=== PATIENT | female | born 1990 | race Caucasian/White ===

== ENCOUNTER 2018-04-25 08:00 | Inpatient (IN) ==
[2018-04-25] MEDS ORDERED: Oxytocin 20 units/ LR 1000 mL 20 UNIT/1,000 ML BAG IVC SCH ×2 (08:30→17:55)
[2018-04-25] MEDS ORDERED: Naloxone 0.4 MG/ML INJ IVP PRN (08:30)
[2018-04-25] MEDS ORDERED: Ringers Solution, Lactated 1,000 ML IVC SCH (08:30)
[2018-04-25] MEDS ORDERED: Famotidine 20 MG/2 ML VIAL IVP PRN (08:30)
[2018-04-25] MEDS ORDERED: *HR* Nalbuphine 10 MG/ML AMPUL IVP PRN (08:30)
[2018-04-25] MEDS ORDERED: Ondansetron 4 MG/2 ML VIAL IVP PRN (08:30)
[2018-04-25] MEDS ORDERED: Lidocaine 1% 20 ML MDV ID PRN (08:30)
--- NOTE | 2018-04-25 09:00 | OB/GYN History & Physical ---
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 Plan to not use FSE or vacuum. Delay vaccines and procedures until he is tested. History of Present Illness Chief complaint: induction of labor at term HPI: Ms. Day is a 27 year old female G 2 P 1-0-0-1 at 39 2/7 weeks who presents for scheduled induction of labor. She denies any leaking fluid, vaginal bleeding, or painful contractions. She reports good movement. 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 She has been seen by hematology and cleared for epidural with predose of factor XI. Anesthesia had been consulted in the third trimester and is in agreement. 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 Psychiatric history: no psych history - Past Surgical History Surgical History: other Additional surgical history: lumpectomy, T&A - Social History Smoking Status: Never smoker Smokeless Tobacco Status: No Alcohol use: none Drug use: none - Family History Father Living Status: Still Living Hx Family Cardiac Disorders: Yes (HTN) Hx Family Medical Disorders: Yes (Hemophelia) Obstetrical History - Pregnancies : 2 Para: 1 Livin Medications and Allergies Vit/Iron Fumarate/FA [ Tablet] 1 each PO DAILY 06/08/15 [History] Calcium Carbonate [Tums] 1,000 mg PO Q4HR 04/25/18 [History] Docusate [Colace] 100 mg PO DAILY 04/25/18 [History] Ferrous Sulfate 325 mg PO DAILY 04/25/18 [History] Allergy/AdvReac Type Severity Reaction Status Date / Time Sulfa (Sulfonamide Allergy See Verified 04/25/18 08:45 Antibiotics) Comments Review of System OB All systems PM: reviewed and no additional remarkable complaints except as stated - Constitutional Constitutional ROS IM: no chills, no fever(s), no headache(s), no weight loss - Gastrointestinal Gastrointestinal: no constipation, no cramping, no nausea, no vomiting - Genitourinary Genitourinary: amenorrhea, no difficulty conceiving, no difficulty urinating, no difficulty voiding - Menstruation Menstruation: amenorrhea Exam - Constitutional Constitutional: well developed, well nourished, no acute distress, average body habitus - HEENT HEENT: Normocephaly, Mucus Membranes Moist - Lungs Respiratory exam: CTAB - Cardiovascular Cardiovascular exam: RRR - Abdomen Abdomen: Present: bowel sounds normal, gravid, non tender - Cervix Dilation: 2 (exam 04/17/18) Effacement: 80 Station: -1 - Comments Comments: category 1 FHR tracing with baseline 125. Infrequent contractions without change in FHR Results All other labs normal. - VTE Reasons for not Prescribing Prophylaxis: Treatment not Indicated - Low risk for VTE
[2018-04-25] MEDS ORDERED: Epidural Premix (fent/bupiv) 110 ML EP SCH (09:15)
[2018-04-25 09:20] LABS: Hematocrit 29.8 % (35.3-44.9); Hemoglobin 9.8 g/dL (11.5-15.4); Mean Corpuscular HGB Conc 32.9 g/dL (31.6-35.5); Mean Corpuscular Hemoglobin 27.6 pg (28.0-33.3); Mean Corpuscular Volume 83.9 fL (83.0-100.0); Platelet Count 188 K/mcL (140-400); Red Blood Count 3.55 M/mcL (3.82-4.97); Segmented Neutrophils % 70.8 %
[2018-04-25 09:21] LABS: Basophils # 0.1 K/mcL (0.0-0.2); Basophils % 0.5 %; Eosinophils # 0.1 K/mcL (0.0-0.6); Eosinophils % 0.8 %; Immature Granulocytes % 0.7 % (0-4); Lymphocytes % 18.8 %; Monocytes # 0.9 K/mcL (0.0-1.3); Monocytes % 8.4 %; Neutrophils # 7.5 K/mcL (1.6-8.9)
[2018-04-25 09:23] LABS: Amphetamine Screen,Urine Negative ng/mL (Cutoff=1000); Barbiturate Screen,Urine Negative ng/mL (Cutoff=200); Benzodiazepines Screen,Urine Negative ng/mL (Cutoff=200); Cannabinoid Screen,Urine Negative ng/mL (Cutoff = 50); Cocaine Screen,Urine Negative ng/mL (Cutoff= 300); Opiate Screen,Urine Negative ng/mL (Cutoff=300); Phencyclidine Screen,Urine Negative ng/mL (Cutoff=25)
--- NOTE | 2018-04-25 10:11 | Anesthesia Evaluation PreOp ---
Date of Encounter: 04/25/18 Time of Encounter: 10:09 - Past History Planned Operation: SOLEDAD Cardiac History: Denies any Significant Hx Pulmonary History: Denies Any Significant HX STUDENT FINANCIAL AID MANAGER History: Denies Any Significant HX Other Medical History: Bleeding (Factor 9 Def. See hematology note and Dr. Man nguyen for consent for epidural. Okay to proceed with SOLEDAD when pt receives Factor 9 15min prior to epidural placement. Will receive second dose at 24 hour.) Anesthesia History: No Prior Anesthetic Complications, Past Anesthesia Alcohol Use: none Drug use: none Medications and Allergies Vit/Iron Fumarate/FA [ Tablet] 1 each PO DAILY 06/08/15 [History] Calcium Carbonate [Tums] 1,000 mg PO Q4HR 04/25/18 [History] Docusate [Colace] 100 mg PO DAILY 04/25/18 [History] Ferrous Sulfate 325 mg PO DAILY 04/25/18 [History] Allergy/AdvReac Type Severity Reaction Status Date / Time Sulfa (Sulfonamide Allergy See Verified 04/25/18 08:45 Antibiotics) Comments - Meds/Allergy Pre-op Review Medications Reviewed: Yes Allergies Reviewed: Yes Beta Blockers on Current Med List: No Anesthesia Results - Labs 04/25/18 08:50 Anesthesia Exam O2 Sat Height 1.6 m Weight 61.9 kg NPO (# of Hours): 4 Pain Scale: 0 Pain Scale Used: Numeric (1 - 10) - HEENT Pupil (Motor): Pupils equal Mallampati: II Teeth: Normal Oral Opening: Greater than 3 - STUDENT FINANCIAL AID MANAGER LOC: Oriented STUDENT FINANCIAL AID MANAGER Motor: Normal RUE, Normal LUE, Normal RLE, Normal LLE, Normal Face STUDENT FINANCIAL AID MANAGER Sensory: Normal: RUE, LUE, RLE, LLE, Face - Cardiac Rhythm: Regular Murmur: None JVD: No Carotid Bruit: No - Pulmonary Breath Sounds: bilateral Clear Respiratory Effort: Symmetrical Anesthesia Assess/Plan ASA Score: 3 (Factor 9 Def.) Level of consciousness: Cooperative, Oriented Anesthetic Plan: General, Epidural Autologous Blood: Yes Monitoring Plan: Standard Monitors Recovery Plan: PACU
[2018-04-25] MEDS ORDERED: Lidocaine -MPF 1% 5 ML AMPUL ONE (10:13)
[2018-04-25] MEDS ORDERED: FACTOR IX IVPB ONE (12:30)
--- NOTE | 2018-04-25 12:38 | OB Labor Progress Note ---
Date of Encounter: 04/25/18 Time of Encounter: 12:36 Labor Progress Note - Subjective Subjective: Patient states her contractions are a 5/10 pain scale. She would like to get her epidural prior to AROM if possible. - Cervix Cervix: 3/80/-1 cephalic - Heart Tones Heart Tones: 125, category 1, reactive - [place]: q 2 minutes - Interventions Interventions: Continue EFM with anticipation of vaginal delivery. Pitocin increase to obtain adequate contractions.
[2018-04-25] MEDS ORDERED: FACTOR IX IVP ONE (12:45)
--- NOTE | 2018-04-25 14:00 | Anesthesia Procedures ---
Addendum entered and electronically signed by Davis Arreola CRNA 04/25/18 20:18: Delivery Date: 04/25/18 Infant Delivery Time: 16:04 Original Note: Date of Encounter: 04/25/18 Time of Encounter: 13:37 Procedures: Anesthesia - Epidural/Spinal Patient ID/Chart reviewed: Yes Patient examined: Yes OB Eval: Gestational age: TERM OB Eval: : 2 OB Eval: Hx Para: 1 OB Eval: Contractions: Non-stressed pattern Consent Obtained: Yes Supplemental Oxygen: None/Room Air Site Prep: Aseptic Technique, Sterile prep and drape, 0.5% Chlorhexidine/Alcohol Patient position: upright Local Anesthetic: Lidocaine 1% Amount of Local Anesthetic used: 2 Touhy Needle Gauge: 18 Touhy Needle Depth (cm): 7 Catheter Depth at Skin (cm): 11 Test Dose (1.5% Lido + Epi): Volume given (mls): 4 Test Dose Result: Negative Loading Dose: Other: 10ml from solution Loading Dose Administered: Thru Catheter Infusion Med: 0.125% Bupivacaine w/ 2 mcg/ml Fentanyl Infusion Rate (mls/hr): [address]: Tegaderm, Tape Interspace Used: L3-L4 Loss of Resistance (SYLVIA): Yes (saline) Blood: No CSF: No Paresthesia: No Procedure: vss though out procedure, FHR stable per staff, epidural placement with Hematology recommendations= factor given 15 prior to procedure. All staff aware and will follow there recommendations for cont. care.
--- NOTE | 2018-04-25 14:27 | OB Labor Progress Note ---
Date of Encounter: 04/25/18 Time of Encounter: 14:25 Labor Progress Note - Subjective Subjective: Patient resting comfortably with epidural in place. - Cervix Cervix: 3cm/80%/-1 - Heart Tones Heart Tones: Category I FHR baseline 125bpm - Interventions Interventions: AROM of small amount of clear fluid IUPC placed Frequent position change and peanut-ball Anticipate Dr. Montana updated - Plan Physician notified: Yes
--- NOTE | 2018-04-25 17:32 | OB/GYN Procedure Note ---
Delivery - Delivery Date: 04/25/18 Provider: Thania Montana Intrapartum events: none Delivery induction: oxytocin Delivery augmentation: rupture of membranes Delivery monitor: external FHT, external uterine, internal uterine Anesthesia: epidural Quantitated Blood Loss: 100 - (s) Infant A Infant Delivery Date: 04/25/18 Delivery Time: 16:04 Presentation: vertex Position: CRISS Route of delivery: Gender: Male Viability: Viable Pounds: 8 Ounces: 6 Weight Gram: 3.785 kg at 1 minute: 9 at 5 mins: 9 Shoulder Dystocia: not encountered Specimens collected: cord blood Placenta: spontaneous Cord: nuchal cord, 3 umbilical vessels, delivered through nuchal - Repair Laceration Description: None, Perineal - 2nd Degree - Complications Delivery complications: none Delivery comments: Called to room with patient complete and +2 station. Under maternal effort she delivered a viable male weighing 8 lbs. 6 oz. and Apgars 9 and 9 at one and 5 minutes respectively over a second-degree perineal laceration. Following delivery of the head there was a loose nuchal cord noted that she delivered through. There is no shoulder dystocia encountered. Infant was placed on mom's abdomen and the cord was allowed to cease pulsations. The cord was then double clamped and cut with assistance from the father. Placenta delivered spontaneously, complete, and intact with a three-vessel cord. Second-degree perineal laceration was repaired using 3-0 Vicryl in standard fashion. Mother and recovering in the LDR in stable condition. - Disposition Mom disposition: stable in LDR disposition: stable in LDR
[2018-04-25] MEDS ORDERED: Ibuprofen 600 MG TABLET PO PRN (17:55)
[2018-04-25] MEDS ORDERED: Benzocaine/Menthol 56 GM AEROSOL SPRAY TP ONE (21:28)
[2018-04-26] MEDS: Acetaminophen 325 MG TABLET PO PRN ×2 (03:44→11:12)
[2018-04-26 08:43] VITALS: BP 108/71
[2018-04-26] MEDS ORDERED: Prenatal Vit/FA 1 EACH TABLET PO SCH (09:00)
--- NOTE | 2018-04-26 09:15 | Discharge Summary ---
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 Montana in 4-6 weeks. - Discharge Medications Prescriptions: New Acetaminophen [Tylenol] 650 mg PO Q6HR PRN tablet PRN Reason: Mild Pain Breast Pump [BREAST PUMP] 1 each .ROUTE AD #1 each Continue Vit/Iron Fumarate/FA [ Tablet] 1 each PO DAILY Docusate [Colace] 100 mg PO DAILY Ferrous Sulfate 325 mg PO DAILY Discontinued Calcium Carbonate [Tums] 1,000 mg PO Q4HR Home Medications: Vit/Iron Fumarate/FA [ Tablet] 1 each PO DAILY 06/08/15 [History] Docusate [Colace] 100 mg PO DAILY 04/25/18 [History] Ferrous Sulfate 325 mg PO DAILY 04/25/18 [History] Acetaminophen [Tylenol] 650 mg PO Q6HR PRN tablet 04/26/18 [Rx] Breast Pump [BREAST PUMP] 1 each .ROUTE AD #1 each 04/26/18 [Rx] Allergies/Adverse Reactions: 3 Allergy/AdvReac Type Severity Reaction Status Date / Time Sulfa (Sulfonamide Allergy See Verified 04/25/18 08:45 Antibiotics) Comments Data Procedures and tests throughout hospitalization: Laboratory Tests 04/25/18 04/25/18 08:50 08:50 WBC 10.6 RBC 3.55 L Hgb 9.8 L Hct 29.8 L MCV 83.9 MCH 27.6 L MCHC 32.9 RDW 13.0 Plt Count 188 MPV 10.0 Immature Gran % 0.7 Seg Neutrophils % 70.8 Lymphocytes % 18.8 Monocytes % 8.4 Eosinophils % 0.8 Basophils % 0.5 Neutrophils # 7.5 Lymphocytes # 2.0 Monocytes # 0.9 Eosinophils # 0.1 Basophils # 0.1 Urine Opiates Screen Negative Ur Barbiturates Screen Negative Ur Phencyclidine Scrn Negative Ur Amphetamines Screen Negative U Benzodiazepines Scrn Negative Urine Cocaine Screen Negative U Marijuana (THC) Screen Negative Ur Drug Screen Interp See Below Labs on day of discharge: Labs from last 24 hours 04/25/18 04/25/18 08:50 08:50 WBC 10.6 RBC 3.55 L Hgb 9.8 L Hct 29.8 L MCV 83.9 MCH 27.6 L MCHC 32.9 RDW 13.0 Plt Count 188 MPV 10.0 Immature Gran % 0.7 Seg Neutrophils % 70.8 Lymphocytes % 18.8 Monocytes % 8.4 Eosinophils % 0.8 Basophils % 0.5 Neutrophils # 7.5 Lymphocytes # 2.0 Monocytes # 0.9 Eosinophils # 0.1 Basophils # 0.1 Urine Opiates Screen Negative Ur Barbiturates Screen Negative Ur Phencyclidine Scrn Negative Ur Amphetamines Screen Negative U Benzodiazepines Scrn Negative Urine Cocaine Screen Negative U Marijuana (THC) Screen Negative Date of admission: 04/25/18 08:08 Primary care physician: Melissa Cadena CNP Consults: 04/25/18 17:55 Consult to Wrapper Stitcher [CONS] Routine Comment: Vaginal delivery, consult needed Discharging clinician: Kenisha Beltran Anticipated date of discharge: 04/26/18 - Patient Status Disposition: Home, Self-Care Condition: Good Functional capacity at discharge: independent ambulation - Discharge Instructions Follow Up With: Melissa Cadena CNP [Primary Care Provider] - Thania Montana DO [Partnered Physician] - - Diet and Activity Activity: increase activity as tolerated Diet: regular diet Hospital Course Reason for admission: induction of labor Delivery: Episiotomy: none Laceration: 2nd degree Other procedures: none complications: none Discharge diagnosis: IUP at term delivered baby: male (breast feeding) Time Attestation: Total time spent providing and/or coordinating discharge services: Time Spent: Less than 30 minutes Exam - Constitutional Vitals: Temp Pulse Resp BP Pulse Ox 97.7 F 89 16 108/71 96 04/26/18 08:41 04/26/18 08:41 04/26/18 08:41 04/26/18 08:41 04/26/18 03:30 General appearance IM: A&O X 3, pleasant, answers questions appropriately - Respiratory Respiratory exam: Present: CTAB - Cardiovascular Cardiovascular exam IM: Present: RRR, +S1, +S2 - Uterine Tone: Firm Uterus Position: At Umbilicus, Midline - Extremities Exam Extremities exam IM: Present: full ROM, normal capillary refill, normal inspection - Neurological Exam Neurological exam: alert, oriented X3, reflexes normal
[2018-04-26] MEDS ORDERED: FACTOR IX IVPB ONE (13:15)
[2018-04-26] MEDS ORDERED: WATER FOR INJ IVPB ONE (13:15)
[2018-04-26] MEDS ORDERED: FACTOR IX IVP ONE (13:20)
== END 2018-04-26 14:00 | disposition home or self-care (01) | DRG 806 ==
LOC: 1NENULAB 08:08 → 1NENUOBS 18:38
PROVIDERS: ADMIT Obstetrics & Gynecology; ATTEND Obstetrics & Gynecology

== ENCOUNTER 2019-12-11 08:00 | Inpatient (IN) ==
[~2019-12-11 08:00] MED LIST: FACTOR IX IVPB SCH; WATER FOR INJ IVPB SCH
[2019-12-11] MEDS ORDERED: FACTOR IX IVPB SCH ×2 (08:45→09:30)
[2019-12-11] MEDS ORDERED: WATER FOR INJ IVPB SCH (08:45)
[2019-12-11] MEDS ORDERED: Metoclopramide 10 MG/2 ML VIAL IVP PRN (08:55)
[2019-12-11] MEDS ORDERED: Famotidine 20 MG/2 ML VIAL IVP PRN (08:55)
[2019-12-11] MEDS ORDERED: *HR* FentaNYL (PF) 100 MCG/2 ML VIAL IVP PRN (08:55)
[2019-12-11] MEDS ORDERED: Naloxone 0.4 MG/ML INJ IVP PRN (08:55)
[2019-12-11] MEDS ORDERED: Oxytocin 20 units/ LR 1000 mL 20 UNIT/1,000 ML BAG IVC SCH (09:00)
[2019-12-11] MEDS ORDERED: Ringers Solution, Lactated 1,000 ML IVC SCH (09:00)
[2019-12-11 09:22] LABS: Basophils % 0.3 %; Eosinophils # 0.1 K/mcL (0.0-0.6); Eosinophils % 0.5 %; Hematocrit 34.1 % (35.3-44.9); Hemoglobin 11.1 g/dL (11.5-15.4); Immature Granulocytes % 0.5 % (0-4); Lymphocytes # 1.6 K/mcL (0.6-4.6); Lymphocytes % 15.9 %; Mean Corpuscular HGB Conc 32.6 g/dL (31.6-35.5); Mean Corpuscular Hemoglobin 28.1 pg (28.0-33.3); Mean Corpuscular Volume 86.3 fL (83.0-100.0); Mean Platelet Volume 9.1 fL (9.4-12.4); Monocytes # 0.9 K/mcL (0.0-1.3); Monocytes % 8.7 %; Neutrophils # 7.4 K/mcL (1.6-8.9); Platelet Count 173 K/mcL (140-400); Red Blood Count 3.95 M/mcL (3.82-4.97); Red Cell Distribution Width 13.3 % (11.5-14.5); Segmented Neutrophils % 74.1 %
[2019-12-11] MEDS ORDERED: [UNRECOGNIZED DRUG - OTHER] IVPB SCH (09:30)
[2019-12-11 10:43] LABS: Amphetamine Screen,Urine Negative ng/mL (Cutoff=1000); Barbiturate Screen,Urine Negative ng/mL (Cutoff=200); Benzodiazepines Screen,Urine Negative ng/mL (Cutoff=200); Cannabinoid Screen,Urine Negative ng/mL (Cutoff = 50); Cocaine Screen,Urine Negative ng/mL (Cutoff= 300); Opiate Screen,Urine Negative ng/mL (Cutoff=300); Phencyclidine Screen,Urine Negative ng/mL (Cutoff=25)
[2019-12-11 13:27] LABS: Adenovirus Not Detected (Not Detect); Coronavirus 229E Not Detected (Not Detect); Coronavirus HKU1 Not Detected (Not Detect); Coronavirus NL63 Not Detected (Not Detect); Coronavirus OC43 Not Detected (Not Detect)
[2019-12-11 13:28] LABS: Bordetella Pertussis Not Detected (Not Detect); Chlamydophila pneumoniae Not Detected (Not Detect); Human Metapneumovirus Not Detected (Not Detect); Human Rhinovirus/Enterovirus Not Detected (Not Detect); Influenza A Subtype 2009 H1 Not Detected (Not Detect); Influenza B Not Detected (Not Detect); Mycoplasma pneumoniae Not Detected (Not Detect); Parainfluenza Virus 1 Not Detected (Not Detect); Parainfluenza Virus 2 Not Detected (Not Detect); Parainfluenza Virus 3 Not Detected (Not Detect); Parainfluenza Virus 4 Not Detected (Not Detect); Respiratory Syncytial Virus Not Detected (Not Detect); SARS-CoV-2 Not Detected (Not Detect)
== END 2019-12-11 12:15 | disposition home or self-care (01) | DRG 833 ==
LOC: 1NENULAB 08:08
PROVIDERS: ADMIT Obstetrics & Gynecology; ATTEND Obstetrics & Gynecology

== ENCOUNTER → 2019-12-14 12:00 | Observation (INO) | END | disposition home or self-care (01) | LOC: 1NENULAB | PROVIDERS: ADMIT Obstetrics & Gynecology; ATTEND Obstetrics & Gynecology ==

== ENCOUNTER 2019-12-15 06:15 | Inpatient (IN) ==
[2019-12-15] MEDS ORDERED: Azithromycin 500 MG in 0.9 % Sodium Chloride 250 ML IVPB ONE (06:19)
[2019-12-15] MEDS ORDERED: Metoclopramide 10 MG/2 ML VIAL IVP PRN (06:19)
[2019-12-15] MEDS ORDERED: Lidocaine 1% 20 ML MDV INFILT PRN (06:19)
[2019-12-15] MEDS ORDERED: Famotidine 20 MG/2 ML VIAL IVP PRN (06:19)
[2019-12-15] MEDS ORDERED: Ondansetron 4 MG/2 ML VIAL IVP PRN (06:19)
[2019-12-15] MEDS ORDERED: miSOPROStoL 25 MCG TABLET VG PRN (06:19)
[2019-12-15] MEDS ORDERED: *HR* FentaNYL (PF) 100 MCG/2 ML VIAL IVP PRN (06:19)
[2019-12-15] MEDS ORDERED: Naloxone 0.4 MG/ML INJ IVP PRN (06:19)
[2019-12-15] MEDS ORDERED: Ringers Solution, Lactated 1,000 ML IVC SCH (06:30)
[2019-12-15 06:47] LABS: Basophils % 0.5 %; Eosinophils # 0.1 K/mcL (0.0-0.6); Eosinophils % 0.8 %; Hematocrit 33.7 % (35.3-44.9); Hemoglobin 10.8 g/dL (11.5-15.4); Immature Granulocytes % 0.7 % (0-4); Lymphocytes # 1.7 K/mcL (0.6-4.6); Lymphocytes % 18.9 %; Mean Corpuscular Hemoglobin 27.5 pg (28.0-33.3); Mean Corpuscular Volume 85.8 fL (83.0-100.0); Mean Platelet Volume 9.4 fL (9.4-12.4); Monocytes # 0.7 K/mcL (0.0-1.3); Monocytes % 8.2 %; Neutrophils # 6.2 K/mcL (1.6-8.9); Platelet Count 186 K/mcL (140-400); Red Blood Count 3.93 M/mcL (3.82-4.97); Red Cell Distribution Width 13.5 % (11.5-14.5); Segmented Neutrophils % 70.9 %; White Blood Count 8.7 K/mcL (4.3-11.1)
[2019-12-15 07:01] LABS: Amphetamine Screen,Urine Negative ng/mL (Cutoff=1000); Barbiturate Screen,Urine Negative ng/mL (Cutoff=200)
[2019-12-15 07:02] LABS: Benzodiazepines Screen,Urine Negative ng/mL (Cutoff=300); Cannabinoid Screen,Urine Negative ng/mL (Cutoff = 50); Cocaine Screen,Urine Negative ng/mL (Cutoff= 300); Opiate Screen,Urine Negative ng/mL (Cutoff=300); Phencyclidine Screen,Urine Negative ng/mL (Cutoff=25)
[2019-12-15] MEDS ORDERED: FACTOR IX IVPB PRN (07:08)
[2019-12-15] MEDS ORDERED: WATER FOR INJ IVPB PRN (07:08)
[2019-12-15] MEDS ORDERED: Oxytocin 20 units/ LR 1000 mL 20 UNIT/1,000 ML BAG IVC SCH ×3 (10:30→17:16)
[2019-12-15] MEDS ORDERED: Ibuprofen 600 MG TABLET PO PRN (17:16)
[2019-12-15] MEDS ORDERED: Lanolin 7 G OINT...G. TP PRN (17:16)
[2019-12-15] MEDS ORDERED: Oxytocin 20 units/ LR 1000 mL 20 UNIT/1,000 ML BAG IVC ONE (17:16)
[2019-12-15] MEDS ORDERED: Benzocaine/Menthol 56 GM AEROSOL SPRAY TP PRN (17:16)
[2019-12-15] MEDS: Acetaminophen 325 MG TABLET PO PRN (20:51)
[2019-12-16] MEDS ORDERED: Methylergonovine 0.2 MG/ML AMPUL IM ONE (03:39)
[2019-12-16] MEDS: Acetaminophen 325 MG TABLET PO PRN ×2 (05:53→12:17)
[2019-12-16 07:50] VITALS: BP 84/54
[2019-12-16] MEDS ORDERED: Prenatal Vit/FA 1 EACH TABLET PO SCH (09:00)
[2019-12-16] MEDS ORDERED: FACTOR IX IVPB ONE ×2 (12:00)
[2019-12-16] MEDS ORDERED: [UNRECOGNIZED DRUG - OTHER] IVPB ONE (12:00)
[2019-12-16] MEDS ORDERED: WATER FOR INJ IVPB ONE (12:00)
== END 2019-12-16 16:45 | disposition home or self-care (01) | DRG 805 ==
LOC: 1NENULAB 06:15 → 1NENUOBS 17:15
PROVIDERS: ADMIT Obstetrics & Gynecology; ATTEND Obstetrics & Gynecology